=== PATIENT | female | born 1950 | race Caucasian/White ===

== ENCOUNTER 2022-05-15 16:05 | Emergency (ER) | payer SELFPAY ==
[2022-05-15] MEDS ORDERED: Bacitracin 1 PK ONE (16:21)
[2022-05-15] MEDS ORDERED: Ziprasidone 20 MG VIAL ONE (16:35)
[2022-05-15] MEDS ORDERED: Sterile Water 10 ML ONE (16:35)
== END 2022-05-15 18:02 | disposition home or self-care (01) ==
LOC: CSHERS 16:05
DX: R60.0 Localized edema (principal)
CPT/HCPCS: 96372; J3486